=== PATIENT | female | born 1965 | race Caucasian/White ===

== ENCOUNTER 2022-07-17 13:24 | Outpatient (CLI) | payer OTHER, SELFPAY | END 2022-07-17 13:25 | disposition home or self-care (01) | PROVIDERS: PCP Specialist; Visit Provider Specialist | DX: C44.01 Basal cell carcinoma of skin of lip (principal) | CPT/HCPCS: 88305 ==

== ENCOUNTER 2023-07-16 12:34 | Outpatient (CLI) | payer OTHER, SELFPAY | END 2023-07-16 12:35 | disposition home or self-care (01) | LOC: CHSLAB 12:37 | PROVIDERS: PCP Specialist; Visit Provider Specialist | DX: D18.01 Hemangioma of skin and subcutaneous tissue (principal) | CPT/HCPCS: 88305 ==